=== PATIENT | female | born 1935 | race Caucasian/White ===

== ENCOUNTER → 2016-07-07 | Outpatient (CLI) | payer OTHER | LOC: FIMAGING 08:33 | PROVIDERS: ATTEND Family Medicine | DX: R05 Cough (principal); K22.5 Diverticulum of esophagus, acquired; K21.9 Gastro-esophageal reflux disease without esophagitis ==

== ENCOUNTER → 2016-08-04 | Outpatient (CLI) | payer OTHER | LOC: CIMAGING 11:05 | PROVIDERS: ATTEND Family Medicine | DX: R05 Cough (principal); R91.8 Other nonspecific abnormal finding of lung field | CPT/HCPCS: 71020-PO ==

== ENCOUNTER → 2016-08-04 | Outpatient (CLI) | payer OTHER | LOC: CIMAGING 11:00 | DX: Z12.31 Encounter for screening mammogram for malignant neoplasm of breast (principal); Z80.3 Family history of malignant neoplasm of breast | CPT/HCPCS: G0202 ==

== ENCOUNTER → 2016-08-11 | Outpatient (CLI) | payer OTHER | LOC: CIMAGING 14:24 | PROVIDERS: ATTEND Family Medicine | DX: R91.8 Other nonspecific abnormal finding of lung field (principal); R05 Cough | CPT/HCPCS: 71250-PO ==

== ENCOUNTER 2018-03-29 13:45 | Emergency (ER) | payer OTHER ==
[2018-03-29] MEDS ORDERED: ONDANSETRON 4 MG/2 ML VIAL ONE (13:51)
[2018-03-29] MEDS ORDERED: ONDANSETRON 4 MG/2 ML VIAL IVP ONE (13:54)
[2018-03-29] MEDS ORDERED: NS 500 ML IV ONE (13:55)
--- NOTE | 2018-03-29 13:59 | EDPHY ---
H & P Time Seen by Provider: 03/29/18 13:51 HPI/ROS: HPI Lightheaded, nauseous. 83-year-old female by ambulance from work. This patient reports that she has been fasting, no fluids or solid food since 6:00 p.m. Last night. She was doing this because she had a physical with her primary care physician and was having blood work done this morning. She saw Dr. Choe her primary care physician this morning. She went to work. She was in a meeting. She suddenly started feeling nauseous and lightheaded. She did not lose consciousness. She is feeling better now. Denies any associated chest pain, shortness of breath, palpitations. No loss of sensation or weakness in her extremities. No changes in vision. She states that she is hungry and is requesting something to eat. She has no significant past medical history. ROS: Constitutional: No fever, no chills. As above. Eyes: No discharge. No changes in vision. ENT: No sore throat. No nasal congestion or rhinorrhea. Respiratory: No cough. No shortness of breath. Cardiac: No chest pain, no palpitations. Gastrointestinal: No abdominal pain, no vomiting, no diarrhea. Genitourinary: No hematuria. No dysuria or increased frequency with urination. Musculoskeletal: No back pain. No neck pain. No myalgias or arthralgias. Skin: No rashes. Neurological: No headache. No focal weakness or altered sensation. Past medical history: Denies. No prescription medications. Social history: Here with coworkers. Nonsmoker. No alcohol. Physical Exam: General Appearance: Alert, no distress. This patient is responding to questions appropriately and in full sentences. This patient appears well- hydrated and well-nourished. Head: Normocephalic atraumatic. Eyes: Pupils equal and round and reactive to light at 3-2 mm bilaterally, no pallor or injection. No lid edema, erythema or injection. ENT, Mouth: Mucous membranes are moist. The pharyngeal tissues are unremarkable. No edema or swelling. No asymmetry suggestive of abscess. No erythema or exudates. No tongue lacerations or abrasions. Respiratory: There are no retractions, lungs are clear to auscultation with good air movement bilaterally. Cardiovascular: Regular rate and rhythm. No murmur appreciated. Gastrointestinal: Abdomen is soft and nontender, no masses, bowel sounds normal. No focal tenderness at McBurney's point. No Mcpherson sign. Neurological: Motor sensory function is grossly intact. Cranial nerves are normal. Cerebellar function is normal. The [id number]-[id number] and ajrn-kr-[id number] normal. Gait is normal. Skin: Warm and dry, no rashes. Musculoskeletal: Neck is supple and nontender. Extremities are symmetrical. All joints range without pain or impingement. Psychiatric: No agitation. No depression. Database: EKG: EKG time is 1:58 p.m.; EKG shows a narrow complex normal sinus rhythm with a ventricular rate of 64. 1st degree AV block noted. Possible old anteroseptal infarct. The QRS, QT intervals are within normal limits. There are no ST-T wave changes indicative of ischemic or injury pattern. No evidence of right heart strain. Interpreted by me. Imaging: Procedures: Emergency department course: Triage vital signs reviewed. Serum glucose obtained at bedside. IV placed. She was started on IV normal saline with 250 cc to 500 cc to be given over the next hour. She will be given lunch and juice. EKG obtained and reviewed by myself. 2:45 p.m., patient re-evaluated, sitting upright and eating peanut butter and Satya crackers with her friends were in the room. She is feeling much better. She denies any symptoms. She feels comfortable going home and I feel she is safe for discharge with her friends. Results of her emergency department workup discussed with her. I will have her follow up with her primary care physician in the next 1-2 days for re-evaluation. Return to emergency department precautions thoroughly reviewed with her. All of her questions were answered. She was discharged from the emergency department in good condition. Differential Diagnosis: The differential diagnosis on this patient includes but is not limited to hypoglycemia, mild dehydration. CVA, TIA, arrhythmia, acute coronary syndrome, pulmonary embolism, subarachnoid hemorrhage unlikely. This represents a partial list of diagnoses considered. These considerations are based on history , physical exam, past history, reassessment and diagnostic testing. Smoking Status: Never smoked Constitutional: Initial Vital Signs Heart Rate 65 03/29/18 14:17 Respiratory Rate 16 03/29/18 14:17 Blood Pressure 107/62 03/29/18 14:17 O2 Sat (%) 93 03/29/18 14:17 O2 Delivery Mode Room Air Allergies/Adverse Reactions: No Known Allergies Allergy (Unverified 01/12/16 12:28) Home Medications: Medication Instructions Recorded Herbals/Supplements -Info Only 1 ea PO DAILY 01/12/16 Multivitamins [Multivitamin (*)] 1 each PO DAILY 01/12/16 traMADol [Ultram 50 mg (*)] 50 mg PO Q6 PRN 01/12/16 Acetaminophen [Tylenol 325mg (*)] 650 mg PO Q4 PRN #0 tab 01/13/16 methylPREDNISolone [Medrol Dose 4 mg PO DAILY #0 ea 01/13/16 Eamon] oxyCODONE IR [Oxycodone Ir (*)] 5 - 10 mg PO Q4 PRN #14 tab 01/13/16 Medical Decision Making - Data Points Laboratory Results: Laboratory Results 03/29/18 13:50 03/29/18 13:50 03/29/18 03/29/18 03/29/18 14:00 13:58 13:50 WBC RBC Hgb POC Hgb 14.3 gm/dL gm/dL (12.6-16.3) Hct POC Hct 42 % % (38-47) MCV MCH MCHC RDW Plt Count MPV Neut % (Auto) Lymph % (Auto) [place] % (Auto) Eos % (Auto) Baso % (Auto) Nucleat RBC Rel Count Absolute Neuts (auto) Absolute Lymphs (auto) Absolute Monos (auto) Absolute Eos (auto) Absolute Basos (auto) Absolute Nucleated RBC Immature Gran % Immature Gran # POC Sodium 141 mEq/L mEq/L (135-145) Sodium 138 mEq/L mEq/L (135-145) POC Potassium 3.9 mEq/L mEq/L (3.3-5.0) Potassium 4.2 mEq/L mEq/L (3.3-5.0) POC Chloride 104 mEq/L mEq/L (97-110) Chloride 106 mEq/L mEq/L (97-110) Carbon Dioxide 26 mEq/l mEq/l (22-31) Anion Gap 6 mEq/L mEq/L (6-14) POC BUN 13 mg/dL mg/dL (7-23) BUN 13 mg/dL mg/dL (7-23) Creatinine 0.6 mg/dL mg/dL (0.6-1.0) POC Creatinine 0.7 mg/dL mg/dL (0.6-1.0) Estimated GFR > 60 Glucose 104 mg/dL H mg/dL (70-100) POC Glucose 111 mg/dL H mg/dL (70-100) Calcium 9.0 mg/dL mg/dL (8.5-10.4) POC Troponin I 0.00 ng/mL ng/mL (0.00-0.08) 03/29/18 13:50 WBC 8.26 10^3/uL 10^3/uL (3.80-9.50) RBC 4.68 10^6/uL 10^6/uL (4.18-5.33) Hgb 13.7 g/dL g/dL (12.6-16.3) POC Hgb Hct 42.2 % % (38.0-47.0) POC Hct MCV 90.2 fL fL (81.5-99.8) MCH 29.3 pg pg (27.9-34.1) MCHC 32.5 g/dL g/dL (32.4-36.7) RDW 13.6 % % (11.5-15.2) Plt Count 234 10^3/uL 10^3/uL (150-400) MPV 10.4 fL fL (8.7-11.7) Neut % (Auto) 50.8 % % (39.3-74.2) Lymph % (Auto) 39.0 % % (15.0-45.0) [place] % (Auto) 7.6 % % (4.5-13.0) Eos % (Auto) 1.3 % % (0.6-7.6) Baso % (Auto) 1.1 % % (0.3-1.7) Nucleat RBC Rel Count 0.0 % % (0.0-0.2) Absolute Neuts (auto) 4.19 10^3/uL 10^3/uL (1.70-6.50) Absolute Lymphs (auto) 3.22 10^3/uL H 10^3/uL (1.00-3.00) Absolute Monos (auto) 0.63 10^3/uL 10^3/uL (0.30-0.80) Absolute Eos (auto) 0.11 10^3/uL 10^3/uL (0.03-0.40) Absolute Basos (auto) 0.09 10^3/uL 10^3/uL (0.02-0.10) Absolute Nucleated RBC 0.00 10^3/uL 10^3/uL (0-0.01) Immature Gran % 0.2 % % (0.0-1.1) Immature Gran # 0.02 10^3/uL 10^3/uL (0.00-0.10) POC Sodium Sodium POC Potassium Potassium POC Chloride Chloride Carbon Dioxide Anion Gap POC BUN BUN Creatinine POC Creatinine Estimated GFR Glucose POC Glucose Calcium POC Troponin I Medications Given: Discontinued Medications Sodium Chloride (Ns) 500 mls @ 1,000 mls/hr IV EDNOW ONE PRN Reason: Protocol Stop: 03/29/18 14:24 Last Admin: 03/29/18 14:00 Dose: 500 mls Ondansetron HCl (Zofran) 4 mg IVP EDNOW ONE Stop: 03/29/18 13:55 Last Admin: 03/29/18 13:58 Dose: 4 mg Point of Care Test Results: Chemistry 03/29/18 03/29/18 14:00 13:58 POC Sodium 141 mEq/L mEq/L (135-145) POC Potassium 3.9 mEq/L mEq/L (3.3-5.0) POC Chloride 104 mEq/L mEq/L (97-110) POC BUN 13 mg/dL mg/dL (7-23) POC Creatinine 0.7 mg/dL mg/dL (0.6-1.0) POC Glucose 111 mg/dL H mg/dL (70-100) POC Troponin I 0.00 ng/mL ng/mL (0.00-0.08) ISTAT H&H 03/29/18 14:00 POC Hgb 14.3 gm/dL gm/dL (12.6-16.3) POC Hct 42 % % (38-47) Departure - Departure Disposition: Home, Routine, Self-Care Clinical Impression: Nausea, Near syncope Condition: Good Instructions: Near Syncope (ED) Additional Instructions: Read and follow provided instructions. Follow-up with your primary care physician in 1-2 days for re-evaluation. You had a 1st degree block on her EKG. Otherwise your EKG was unremarkable. Your primary care physician should be aware of this. Keep yourself well hydrated. Eat 3 regular meals a day. Return to the emergency department for return of symptoms, chest pain, shortness of breath or other serious concerns. Referrals: Patient,NotPresent [Unknown] - As per Instructions
[2018-03-29 14:13] LABS: PLATELET COUNT 234 10^3/uL (150-400)
[2018-03-29 15:19] VITALS: BP 131/85
--- NOTE | 2018-03-29 19:54 | CPEKG ---
Test Reason : OPEN Blood Pressure : / mmHG Vent. Rate : 064 BPM Atrial Rate : 064 BPM P-R Int : 251 ms QRS Dur : 081 ms QT Int : 418 ms P-R-T Axes : -21 049 047 degrees QTc Int : 432 ms Sinus rhythm Prolonged DE interval Anteroseptal infarct, old Confirmed by Victorino Qureshi ([id number]) on 03/29/2018 7:53:47 PM Referred By: Confirmed By:Victorino Qureshi
== END 2018-03-29 15:09 | disposition home or self-care (01) ==
LOC: EDUNIT#
DX: R11.0 Nausea (principal); R55 Syncope and collapse
CPT/HCPCS: 93005; 96374; 99284; J2405; 82435-PO; 82565-PO; 82947-PO; 84132-PO; 84295-PO; 84484-PO; 84520-PO; 85014-PO

== ENCOUNTER 2018-05-25 10:18 | Observation (INO) | payer OTHER ==
--- NOTE | 2018-05-25 21:03 | PDGENHP ---
History and Physical - Chief Complaint RUQ pain - History of Present Illness 83 yo woman with 3 days of RUQ pain. Presented to pcp office with U/S and labs performed. WBC 16K. Normal LFTs. U/S suggestive of acute cholecystitis. Sent in for definitive treatment History Information - Allergies/Home Medication List Allergies/Adverse Reactions: No Known Allergies Allergy (Verified 05/25/18 19:56) Home Medications: Benzonatate [Tessalon Pearles (RX)] 100 mg PO TID PRN 05/25/18 [Last Taken Unknown] I have personally reviewed and updated: medical history, social history, surgical history - Past Medical History Additional medical history: chronic cough - Surgical History Reports: appendectomy - Family History Positive for: non-pertinent - Social History Smoking Status: Never smoked Review of Systems Review of Systems: ROS: 2-9 pt reviewed & negative except for what was stated in HPI & below Cardiac: Reports: no symptoms Respiratory: Reports: cough Gastrointestinal: Reports: abdominal pain Physical Exam Physical Exam: Temp Pulse Resp BP Pulse Ox 36.6 C 79 16 144/77 H 92 05/25/18 18:43 05/25/18 18:43 05/25/18 18:43 05/25/18 18:43 05/25/18 18:43 Constitutional: no apparent distress Eyes: anicteric sclera, EOMI Ears, Nose, Mouth, Throat: moist mucous membranes Cardiovascular: regular rate and rhythym, No JVD Peripheral Pulses: 2+: carotid (R), carotid (L), dorsalis-pedis (R), dorsalis- pedis (L) Respiratory: no respiratory distress, other (cough) Gastrointestinal: tenderness, fernández's sign (mild) Skin: warm, normal color, no rashes or abrasions Musculoskeletal: full muscle strength, normal joint ROM Neurologic: AAOx3, CN II-XII Intact Psychiatric: interacting appropriately Lymph, Heme, Immunologic: no cervical LAD, no supraclavicular LAD Lab Data & Imaging Review Imaging Review: Imaging Impressions Abdomen Ultrasound 05/25/18 10:30 Impression: Thickened/edematous gallbladder wall of a stone/sludge filled gallbladder concerning for acute cholecystitis, clinical and laboratory correlation is recommended for acute versus chronic right upper quadrant symptomatology. WESLY Wolff was notified of these findings at 12:25 PM on 05/25/2018 Assessment & Plan Assessment: Acute cholecystitis Chronic cough Plan: Laparoscopic cholecystectomy without gram. Risks, benefits and alternatives including non operative management reviewed. All questions addressed. Start unasyn 1.5 gm IV Q6 hr Restart antitussive medications
[2018-05-25] MEDS ORDERED: LR 1,000 ML IV SCH (21:30)
[2018-05-25] MEDS ORDERED: BENZONATATE 100 MG CAP PO PRN (22:28)
[2018-05-26] MEDS: AMPICILLIN/SULBACTAM 1.5 GM in NS 50 ML IV SCH ×3 (05:13→12:22)
[2018-05-26] MEDS ORDERED: BUPIVACAINE 0.5% 30 ML SDV ONE (05:20)
[2018-05-26] MEDS ORDERED: LIDOCAINE 1% 300 MG/30 ML SDV ONE (05:20)
[2018-05-26] MEDS ORDERED: fentaNYL 100 MCG/2 ML INJ ONE ×2 (06:03)
[2018-05-26] MEDS ORDERED: DEXAMETHASONE 4 MG/ML VIAL ONE (06:03)
[2018-05-26] MEDS ORDERED: SUGAMMADEX SODIUM 200 MG/2 ML VIAL IVP ONE (06:03)
[2018-05-26] MEDS ORDERED: PROPOFOL 200 MG/20 ML VIAL ONE (06:03)
[2018-05-26] MEDS ORDERED: ONDANSETRON 4 MG/2 ML VIAL ONE (06:03)
[2018-05-26] MEDS ORDERED: ROCURONIUM 50 MG/5 ML VIAL ONE (06:04)
[2018-05-26] MEDS ORDERED: KETOROLAC 30 MG/1 ML SDV ONE (06:04)
--- NOTE | 2018-05-26 06:33 | PDANEPAE ---
ANE History of Present Illness cholecystitis ANE Past Medical History - Cardiovascular History Hx Hypertension: No Hx Arrhythmias: No Hx Chest Pain: No Hx Coronary Artery / Peripheral Vascular Disease: No Hx CHF / Valvular Disease: No Hx Palpitations: No - Pulmonary History Hx COPD: No Hx Asthma/Reactive Airway Disease: No Hx Recent Upper Respiratory Infection: No Hx Oxygen in Use at Home: No Hx Sleep Apnea: No Sleep Apnea Screening Result - Last Documented: Negative - Endocrine History Hx Diabetes: No - Chronic Pain History Chronic Pain: No ANE Review of Systems Review of systems is: negative Review of Systems: - Exercise capacity Exercise capacity: >=4 METS ANE Patient History - Allergies Allergies/Adverse Reactions: No Known Allergies Allergy (Verified 05/25/18 19:56) - Home Medications Home medications: home medication list seen and reviewed Home Medications: Benzonatate [Tessalon Pearles (RX)] 100 mg PO TID PRN 05/25/18 [Last Taken Unknown] - NPO status NPO Since - Liquids (Date): 05/26/18 NPO Since - Liquids (Time): 00:00 NPO Since - Solids (Date): 05/26/18 NPO Since - Solids (Time): 00:00 - Anes Hx Anes Hx: no prior problems - Smoking Hx Smoking Status: Never smoked ANE Labs/Vital Signs - Vital Signs Blood Pressure: 111/56 Heart Rate: 65 Respiratory Rate: 14 O2 Sat (%): 95 Height: 152.4 cm Weight: 63.503 kg ANE Physical Exam - Airway Neck exam: FROM Mallampati Score: Class 1 Mouth exam: normal dental/mouth exam - Pulmonary Pulmonary: other (chronic cough) - Cardiovascular Cardiovascular: regular rate and rhythym - ASA Status ASA Status: II ANE Anesthesia Plan Anesthesia Plan: general endotracheal anesthesia Urgent/Emergent Case: Tatiannadavid rubin completed preop but documented later for safe timely pt care
--- NOTE | 2018-05-26 06:34 | POSTANESTH ---
Post Anesthetic Evaluation Cardiovascular Status: Normal, Stable Respiratory Status: Normal, Stable Level of Consciousness/Mental Status: Can Participate in Eval, Mildly Sleepy, Arousable Pain Control: Adequate, Prn Tx Ordered Nausea/Vomiting Control: Adequate, Prn Tx Ordered Complications Possibly Related to Anesthesia: None Noted
[2018-05-26] MEDS ORDERED: HYDROCODONE/APAP 5/325 TAB PO PRN ×2 (08:04→08:13)
[2018-05-26] MEDS ORDERED: IBUPROFEN 600 MG TAB PO PRN (08:04)
[2018-05-26] MEDS ORDERED: ONDANSETRON 4 MG/2 ML VIAL IVP PRN ×2 (08:04→08:13)
--- NOTE | 2018-05-26 08:06 | POSTOPPROG ---
Post Op Note Date of Operation: 05/26/18 Surgeon: Tree Childs Olive Packer: mojgan Anesthesiologist: Obed Boss Anesthesia: GET(General Endotracheal) Pre-op Diagnosis: Cholecystitis Post-op Diagnosis: same Procedure: Lap porsche Findings: acute on chronic inflammation Inf/Abcess present in the surg proc area at time of surgery?: No EBL: 50-100 Specimen(s): gallbladder to permanent pathology
[2018-05-26] MEDS ORDERED: PROMETHAZINE HCL 25 MG/ML INJ IVP PRN (08:13)
[2018-05-26] MEDS ORDERED: NALOXONE HCL 0.4 MG/ML INJ IVP PRN (08:13)
[2018-05-26] MEDS ORDERED: HYDROmorphONE/DILAUDID 2 MG/ML INJ IVP PRN (08:13)
[2018-05-26] MEDS ORDERED: ALBUTEROL 3 ML DEYVIAL IH PRN (08:13)
[2018-05-26] MEDS ORDERED: fentaNYL 100 MCG/2 ML INJ IVP PRN (08:13)
[2018-05-26] MEDS ORDERED: LR 500 ML IV PRN (08:13)
[2018-05-26] MEDS ORDERED: oxyCODONE IR 5 MG TAB PO PRN (08:13)
[2018-05-26] MEDS ORDERED: ACETAMINOPHEN 500 MG TAB PO PRN (08:13)
--- NOTE | 2018-05-26 08:15 | SUROPNOTE ---
MICHAEL Operative Report - Surgery Date of surgery: 05/26/2018 Indications for surgery this is an 83-year-old woman with abdominal pain and presented to her PCP has office [place] [id number] normal transaminases and ultrasound showed acute cholecystitis. She was brought to the hospital for urgent evaluation and management of this problem. She was started on antibiotics. Consent was obtained. Preop diagnosis: Acute on chronic cholecystitis Postop diagnosis: Same Procedure: Laparoscopic cholecystectomy Surgeon Amadeo Anesthesiologist: Dr Boss, general endotracheal anesthesia Specimen: Gallbladder to permanent pathology Findings: Acute on chronic cholecystitis with a known large gallbladder full of stones. EBL: 50 mL Fluids given 500 cc crystalloid Details of the procedure: The patient was brought to the operating room after induction of endotracheal anesthesia in supine position her abdomen is prepped chlorhexidine and draped sterilely time-out procedure was then performed according institutional standards. Local anesthetic is infused in skin and subcutaneous tissues of the trocar sites. Open infra umbilical trocar placement is done in standard fashion. The abdomen is insufflated to 15 torr with carbon dioxide working trocars were placed in the subxiphoid and right subcostal areas under direct visualization. The gallbladder is tensely distended has to be aspirated prior to being able to be grasped. The wall is very thickened and there is acute on chronic inflammation. There is omentum and this stomach adherent to the gallbladder which ordered dissected off. The cystic duct and cystic artery are identified in the triangle of Calot the cystic duct is fairly large but goes directly to common bile duct with a very short takeoff. It is decided to do a top-down approach. The cystic artery was triply clipped and ligated the gallbladder is then taken down from the cystic plate and an endoloop was placed around the gallbladder onto the cystic duct. After incision the endoloop down the infundibulum is truncated. Gallbladder is placed into an endo-pouch. The areas aspirated and irrigated till clear. The umbilical incision has to be widened in order to allow the large gallbladder to be removed. The incision is closed using 0 Vicryl at the level of fascia and the skin is reapproximated with 4 Monocryl. There are no other complications. Needle instrument sponge counts other ensured to be correct. The patient awakened extubated taken to recovery room in stable condition no immediate complications.
[2018-05-26] MEDS ORDERED: ALBUTEROL 3 ML DEYVIAL ONE (08:21)
--- NOTE | 2018-05-26 12:57 | ASMTCMCOM ---
CM Note CM Note Notes: Reviewed chart. Pt admitted for cholecystitis. POD #1 s/p laproscopic porsche. History is unremarkable and includes a prior appendectomy. Pt is single and lives in [place]. Discharge needs remain unclear at this time. No therapies ordered. Anticipate pt will likely discharge home independently when medically stable. CM will continue to follow for any potential discharge needs. Discharge Plan: Likely independent Date Signed: 05/26/2018 12:57 PM Electronically Signed By:Deja Greer RN
[2018-05-26 15:48] VITALS: BP 126/72
--- NOTE | 2018-05-26 17:18 | ASMTLACE ---
EDITH Length of stay for Answers: 1 day current admission Acuity / Level of Answers: No Care: Did the patient have an inpatient admission? # of Emergency department Answers: 1-2 visits in the last 6 months Score: 2 Date Signed: 05/26/2018 05:18 PM Electronically Signed By:Deja Greer RN
--- NOTE | 2018-05-26 17:21 | ASMTDCNOTE ---
Case Management Discharge Discharge Order Complete? Answers: Yes Patient to Obtain Answers: Independently Medications Transportation Arranged Answers: Family/Friends Transport will Pick (Date 05/26/2018 12:00 AM & Time) EMTALA Complete Answers: No Notes: N/A Case Management Transport Answers: No Notes: N/A Form Complete Faxed Final Orders Answers: No Notes: N/A Agency/Facility Transfer Answers: No Notes: N/A Report Printed & Faxed to Receiving Agency Family Notified Answers: No Notes: Pt to notify Discharge Comments Notes: Pt to discharge home independently with no identified needs. Pt to follow up as directed. No IM/AMADO forms signed, admission < 24 hrs. CM available for any further issues or concerns. Discharge Plan: Home independently Date Signed: 05/26/2018 05:21 PM Electronically Signed By:Deja Greer RN
--- NOTE | 2018-05-26 17:24 | ASDISCHSUM ---
Discharge Information Plan Status:Home with No Needs Medically Cleared to Leave:05/25/2018 Discharge Date:05/25/2018 CM D/C Disposition:Home, Routine, Self-Care ADT D/C Disposition:Home, Routine, Self-Care Projected Discharge Date:05/25/2018 Transportation at D/C:Family Discharge Delay Reason: Follow-Up Date:05/25/2018 Discharge Slot:2 - 12:01 pm - 18:00 pm Final Diagnosis:Cholecystitis, s/p lap porsche Placement Information Patient Contact Information Contact Name:JANETT Relationship:Friend Address: Work Phone: City: [facility] Phone: [facility] Code: Email: Financial Information Financial Class:Medicare Advantage Plans Primary Plan Desc:[employer] GOLD MEDICARE Primary Plan Number:[id number] Secondary Plan Desc: Secondary Plan Number: Assessment Information LACE LACE Length of stay for Answers: 1 day current admission Acuity / Level of Answers: No Care: Did the patient have an inpatient admission? # of Emergency department Answers: 1-2 visits in the last 6 months Score: 2 Date Signed: 05/26/2018 05:18 PM Electronically Signed By:Deja Greer RN [facility] CM Progress Note CM Note CM Note Notes: Reviewed chart. Pt admitted for cholecystitis. POD #1 s/p laproscopic porsche. History is unremarkable and includes a prior appendectomy. Pt is single and lives in [place]. Discharge needs remain unclear at this time. No therapies ordered. Anticipate pt will likely discharge home independently when medically stable. CM will continue to follow for any potential discharge needs. Discharge Plan: Likely independent Date Signed: 05/26/2018 12:57 PM Electronically Signed By:Deja Greer RN Case Management Discharge Plan Note Case Management Discharge Discharge Order Complete? Answers: Yes Patient to Obtain Answers: Independently Medications Transportation Arranged Answers: Family/Friends Transport will Pick (Date 05/26/2018 12:00 AM & Time) EMTALA Complete Answers: No Notes: N/A Case Management Transport Answers: No Notes: N/A Form Complete Faxed Final Orders Answers: No Notes: N/A Agency/Facility Transfer Answers: No Notes: N/A Report Printed & Faxed to Receiving Agency Family Notified Answers: No Notes: Pt to notify Discharge Comments Notes: Pt to discharge home independently with no identified needs. Pt to follow up as directed. No IM/AMADO forms signed, admission < 24 hrs. CM available for any further issues or concerns. Discharge Plan: Home independently Date Signed: 05/26/2018 05:21 PM Electronically Signed By:Deja Greer RN Intervention Information
--- NOTE | 2018-05-30 12:37 | PDDCSUM ---
Discharge Summary Discharge Summary: Date of admission: 05/25/2018 Date of discharge: 05/26/2018 Principal diagnosis: Acute calculous cholecystitis Secondary diagnosis: Chronic cough Procedures on hospital admission: Laparoscopic cholecystectomy 05/26/2018 Chief complaint: Acute calculous cholecystitis History of present illness: Patient was brought in from home after undergoing ultrasound and laboratory studies suggesting acute cholecystitis. Her primary [place] [address] and acute cholecystitis on ultrasound. She was directly admitted to the hospital for evaluation and management of this problem. Past medical history: Chronic cough Past surgical history: Noncontributory Allergies: No known drug allergies Medications taken at home: [place] [facility] course: The patient was admitted on the day of identification of her problem. She was brought to the hospital for evaluation and management. She was found to have normal liver function tests and electrolytes[place] [address]. Review of her ultrasound demonstrated acute on chronic cholecystitis. Her pain had begun 3 days prior to admission with persistence in intensity and severity until earlier on the day of admission. She was able to eat dinner in the evening but her clinical picture was not is worrisome as the objective findings. The patient was made NPO given Unasyn for IV antibiotic coverage of acute cholecystitis. She was taken to the operating room underwent laparoscopic cholecystectomy complicated by an enlarged gallbladder full of stones. The patient had acute on chronic inflammation which required extensive dissection prior to gallbladder removal. Patient advancing her diet and activity over the course of the day. She was tolerating diet ambulatory and had her pain controlled with oral analgesics. She was discharged home with follow-up in the office in 1-2 weeks. She was to call with any concerns regarding her hospitalization such as but not limited to pain not controlled by medication, inability to eat, signs of jaundice, wound concerns, infection with temperature greater than 101.5 shortness of breath or other issues she thinks are related to her surgery or hospitalization. Medications to Continue on Transfer Benzonatate [Tessalon Pearles] 100 mg PO TID PRN 05/25/18 [Last Taken Unknown] Hydrocodone/APAP 5/325 [[place] 5/325 (*)] 1 tab PO Q4HRS PRN #14 tab 05/26/18 [ Last Taken Unknown] Ibuprofen [Motrin (*)] 600 mg PO Q6HRS PRN #20 tab 05/26/18 [Last Taken Unknown] Discharge Medications Discharge Observation Discharge Date/Time: 05/26/18 17:49 Observation Discharge Disposition: Home, Routine, Self-Care Observation Discharge Comment: Instructions: Laparoscopic Cholecystectomy (DC) Prescriptions: Hydrocodone/APAP 5/325 [[place] 5/325 (*)] [place] Ibuprofen [Motrin (*)] [place] Follow-up with Dr. Amadeo Greer surgical has been scheduled. Patient will follow up accordingly
== END 2018-05-26 17:49 | disposition home or self-care (01) ==
LOC: CIMAGING 10:18 → EDSTATUS 10:30 → F3E 18:28
PROVIDERS: ADMIT Surgery; ATTEND Surgery
PROC: 0FT44ZZ Resection of Gallbladder, Percutaneous Endoscopic Approach (ICD-10-PCS; principal; 2018-05-25)
DX: K80.12 Calculus of gallbladder with acute and chronic cholecystitis without obstruction (principal); R05 Cough
CPT/HCPCS: 47562; 76705; 88304; G0378; J0295; J1100; J1885; J2405; J2704; J3010; J7613

== ENCOUNTER → 2018-08-23 | Outpatient (CLI) | payer OTHER | LOC: CIMAGING 15:04 | PROVIDERS: ATTEND Family Medicine | DX: J98.4 Other disorders of lung (principal); R06.09 Other forms of dyspnea | CPT/HCPCS: 71046-PO ==

== ENCOUNTER 2018-11-09 07:37 | Observation (INO) | payer OTHER | END 2018-11-10 11:55 | disposition home or self-care (01) | LOC: FCATH 07:37 → F2W 11:51 ==